=== PATIENT | male | born 2000 | race Caucasian/White ===

== ENCOUNTER 2022-06-23 01:57 | Emergency (ER) | payer BC, OTHER ==
[~2022-06-23] VITALS: Ht 170 cm; Wt 95.0 kg
[2022-06-23 02:12] VITALS: BP 121/69
[2022-06-23] MEDS ORDERED: ONDANSETRON 4 MG (ZOFRAN) ORAL DISSOLVE TAB PO ONE (02:30)
--- NOTE | 2022-06-23 03:22 | ED General ---
General Chief Complaint: Abdominal/GI Problems Stated Complaint: VOMITING/ABD/BACK/LEG PAIN Nursing Triage Note: Pt presents with c/o nausea/vomiting and body aches x 6 hours. Pt unsure of fever at home. Source of Information: Patient History of Present Illness Timing/Duration: 1-3 Hours Allergies and Home Medications Allergies Coded Allergies: No Known Drug Allergies (Unverified , 06/23/22) Past Yqpuvsv-Alzdvk-Prikon Hx Immunizations Up To Date Influenza Vaccine Up-to-Date: Yes; Up-to-Date Physical Exam Vital Signs Vital Signs - First Documented 06/23/22 02:12 Temp 37.2 Pulse 107 Resp 18 B/P (MAP) 121/69 (86) Capillary Refill : Less Than 3 Seconds Height, Weight, BMI Height: '" Weight: lbs. oz. kg; 32.00 BMI Method: Progress/Results/Core Measures Suspected Sepsis SIRS Temperature: Pulse: 107 Respiratory Rate: 18 Blood Pressure 121 /69 Mean: 86 Results/Orders Lab Results Laboratory Tests Test 06/23/22 02:27 Range/Units Influenza Type A (RT-PCR) Not Detected Not Detecte Influenza Type B (RT-PCR) Not Detected Not Detecte SARS-CoV-2 RNA (RT-PCR) Detected H Not Detecte Group A Streptococcus Screen NEGATIVE NEGATIVE My Orders Orders - PLACIDO MIRZA DO Rapid Strep A Screen (06/23/22 02:19) Covid 19 Inhouse Test (06/23/22 02:19) Influenza A And B By Pcr (06/23/22 02:19) Isolation Central Supply Req (06/23/22 02:19) Ondansetron Oral Dissolve Tab (Zofran (06/23/22 02:30) Medications Given in ED Current Medications Medications Dose Ordered Sig/Nancy Route Start Time Stop Time Status Last Admin Dose Admin Ondansetron HCl 4 mg ONCE ONCE PO 06/23/22 02:30 06/23/22 02:31 DC 06/23/22 02:30 4 MG Vital Signs/I&O 06/23/22 02:12 Temp 37.2 Pulse 107 Resp 18 B/P (MAP) 121/69 (86) Capillary Refill : Less Than 3 Seconds Blood Pressure Mean: 86 Departure Impression Primary Impression: COVID-19 virus infection Disposition: 01 HOME, SELF-CARE Condition: Stable Departure-Patient Inst. Decision time for Depature: 03:19 Patient Instructions: COVID-19 ED, Preventing the Spread of an Infectious Disease Add. Discharge Instructions: LOTS OF CLEAR LIQUIDS--WATER, BROTH, JELLO, GATORADE, POPSICLES, CLEAR JUICES TYLENOL 1 GRAM PLUS MOTRIN 800 MG 4 TIMES A DAY FOR PAIN OR FEVER OVER THE COUNTER MEDICATIONS FOR COUGH AND CONGESTION QUARANTINE FOR 10 DAYS FOLLOW UP WITH YOUR DR IN 6-7 DAYS IF NO BETTER, RETURN TO ER IF WORSE All discharge instructions reviewed with patient and/or family. Voiced understanding. Work/School Note: Work Release Form Date Seen in the Emergency Department: Jun 23, 2022 Return to Work: Jul 02, 2022 PLACIDO MIRZA DO Jun 23, 2022 03:21
== END 2022-06-23 03:26 | disposition home or self-care (01) ==
LOC: ER 01:59
DX: U07.1 COVID-19 (principal); R11.2 Nausea with vomiting, unspecified
CPT/HCPCS: 87430; 87636; 99283